=== PATIENT | male | born 1975 | race Caucasian/White ===

== ENCOUNTER 2017-09-25 02:39 | Emergency (ER) | payer OTHER ==
[~2017-09-25] VITALS: Ht 180.3 cm; Wt 104.3 kg
[2017-09-25] MEDS ORDERED: ALEVE220 MG PO (02:58)
[2017-09-25] MEDS ORDERED: OMEPRAZOLE20 MG PO (05:42)
[2017-09-25] MEDS ORDERED: NORCO 5-325 TA1 EACH PO (05:42)
[2017-09-25] MEDS ORDERED: ZOFRAN ODT4 MG PO (05:42)
== END 2017-09-25 05:59 | disposition home or self-care (01) ==
LOC: ED 02:39
DX: K80.20 Calculus of gallbladder without cholecystitis without obstruction (principal)
CPT/HCPCS: 76705; 80053; 81001; 83690; 85025; 87088; 96361; 96374; 96375; 99284; J1170; J1200; J2405; J2765; J7030

== ENCOUNTER 2017-10-03 21:54 | Inpatient (IN) | payer OTHER ==
[~2017-10-03] VITALS: Ht 180.3 cm; Wt 106.8 kg
[~2017-10-03 21:54] MED LIST: ALEVE220 MG PO; NORCO 5-325 TA1 EACH PO; OMEPRAZOLE20 MG PO; ZOFRAN ODT4 MG PO
[2017-10-03] MEDS ORDERED: ACTIGALL300 MG PO (22:14)
--- NOTE | 2017-10-04 00:41 | NUR ---
PT ADMITTED TO ROOM 116 FROM ER. COMPLAINS OF PAIN IN ABD THAT RADIATES TO HIS BACK. SAID HE HAS HAD THE GALLBLADDER PAIN FOR FEW WEEKS. HAS LOST 70 POUNDS IN 2017 BY CHOICE, BELIEVES STONES ARE RELATED TO HIS NEW DIET. AMBULATED TO BATHROOM TO VOID, GOT NAUSEATED AND VOMITED, GREEN 200 CC. ONCE BACK IN BED HE STATED HE FELT BETTER. PT WINDOWS SERVER SUPPORT TECHNICIAN, VIVI, GIVING HIM ZOFRAN AND DILAUDID FOR PAIN. IVF INFUSING AT 150CC
--- NOTE | 2017-10-04 01:19 | NUR ---
PATIENT RESTING COMFORTABLY IN BED, BREATHING IS EVEN AND UNLABORED. REPORTS 03/08 IN RUQ OF ABD. PRN DILAUDID GIVEN. WHILE AMBULATING TO BATHROOM, PATIENT VOMITED. PRN ZOFRAN GIVEN. PATIENT DENIES FURTHER NEEDS AT THIS TIME. CALL LIGHT WITHIN REACH.
--- NOTE | 2017-10-04 02:55 | NUR ---
PATIENT REPORTS 4/10 PAIN IN RUQ OF ABD AND LOWER BACK. PRN DILAUDID GIVEN PER EMAR. PATIENT DENIES FURTHER NEEDS AT THIS TIME. CONTINUOUS PULSE OX PUT ON DUE TO IV PAIN MEDICATION ADMINISTRATION. PATIENT CURRENT O2 SAT IS 92% ON RA. CALL LIGHT WITHIN REACH.
--- NOTE | 2017-10-04 03:06 | NUR ---
DUE TO 02 SATURATION OF 87%, PLACED PATIENT ON 1L O2 VIA NC. O2 SATURATION IS NOW 94%. PATIENT DENIES NEEDS AT THIS TIME. RESTING COMFORTABLY IN BED, BRETHING EVEN AND UNLABORED. CALL LIGHT WITHIN REACH.
--- NOTE | 2017-10-04 05:59 | NUR ---
PATIENT REPORTS 5/10 ABD PAIN AND EMESIS WHILE AMBULATING. PRN DILAUDID AND ZOFRAN GIVEN PER EMAR. PATIENT DENIES FURTHER NEEDS AT THIS TIME. CALL LIGHT WITHIN REACH.
--- NOTE | 2017-10-04 07:00 | NUR ---
REPORT GIVEN FROM VIVI RN. PATIENT HAD C/O PAIN AND NAUSEA. PATIENT VERY ANXIOUS ABOUT MEDICATIONS AND CARE.
--- NOTE | 2017-10-04 07:30 | NUR ---
CALLED DR. TAYLOR FOR NAUSEA AND PAIN MEDICATIONS. GAVE PATIENT 12.5MGOF PHENERGAN AND MORPHINE 4 MG. PATIENT RESTING IN BED. ANXIOUS ABOUT MEDICATIONS. ASKING QUESTIONS IN REGARDS TO SCHEDULES AND CARES. ASSESSMENT COMPLETE. UPDATED PT ON PLAN OF CARE.
--- NOTE | 2017-10-04 09:03 | NUR ---
PATIENT REPORTS TO BE DOING WELL. IN ROOM.
--- NOTE | 2017-10-04 10:55 | NUR ---
patient stating he is starting to feel the pain come back in r ribs. patient agreed to taking 2mg morphine. gave iv medications. in room. patient stating no nausea at this time. reports to be voiding well. no other needs at this time.
--- NOTE | 2017-10-04 11:15 | NUR ---
patient stating pain medication helping. doing okay at this time. abd remains active. tender to touch. scds in place. no nausea at this time.
--- NOTE | 2017-10-04 12:00 | NUR ---
rounded with dr. braun in room. plan to given several bolus. and prep for surgery later tonight. continue npo status. consent to chart. patient updated onplan of care.
--- NOTE | 2017-10-04 12:35 | NUR ---
BOLUS STARTED. MORPHINE 4 MG GIVEN. PATIENT UPDATED ON PREPING FOR SURGERY. IN ROOM.
--- NOTE | 2017-10-04 15:09 | NUR ---
PATIENT FINISHED SURGICAL WIPE DONE. ASSISTED BACK TO BED WITH CLEAN SHEETS. ANTIBIOTIC STARTED. PATIENT REPORTS STILL HAVING R RIB PAIN. MORPHINE 6 MG GIVEN. IN ROOM. PATIENT IS ALREADY FOR SURGERY.
--- NOTE | 2017-10-04 16:15 | NUR ---
patient given morphine and phenergan for c/o nausea starting and r back pain. in room. repositioned patient. oral care provided. patient asking when he going to surgery. updated him on waiting time. patien reports morphine helping with pain, but that it comes back. call light within reach. patient has cont pulse ox in place.
--- NOTE | 2017-10-04 17:08 | NUR ---
PATIENT TO SURGERY. RECENT VOID, CONTACTS OUT. PATIENT GOING WITH EYEGLASSES AND GLASS CASE. STRAIGHT TUBING INTACT AND FREE FLOWING.
[2017-10-04] MEDS ORDERED: ANDROGEL75 G1 TOP (18:11)
--- NOTE | 2017-10-04 19:20 | NUR ---
RECEIVED REPORT FROM RN. PATIENT CURRENTLY IN SURGERY. IN ROOM.
--- NOTE | 2017-10-04 19:59 | NUR ---
10/04/171958 Afshan Mattson 1949 - PT ARRIVED TO PACU. MAINTAINING OWN AIRWAY. PT RESPONDS TO STIMULI.
--- NOTE | 2017-10-04 21:00 | NUR ---
PT ARRIVED BACK FROM PACU, RECEIVED REPORT FROM KAILEY. PT ASKING QUESTIONS, AND REPEATING THEM. CONFUSED, O2 @ 2 LITERS HIS OXYGEN LEVELS DROP TO HIGH 80'S. PT EXTUBATED SELF, NEEDED ENCOURAGEMENT TO TAKE DEEP BREATHS, BUT FALLS ASLEEP OFF AND ON DURING CONVERSATION.
--- NOTE | 2017-10-04 21:30 | NUR ---
PATIENT RESTING COMFORTABLY IN BED, BREATHING IS EVEN AND UNLABORED. PATIENT DENIES NAUSEA AT THIS TIME. PATIENT REPORTS 4/10 PAIN IN ABD. PATIENT REMAINS DROWSY AFTER SURGERY AND FALLS ASLEEP QUICKLY WHEN NOT BEING VERBALLY STIMULATED. FLACC SCORE OF 0. PAIN MEDICATION NOT GIVEN AT THIS TIME DUE TO FLACC SCORE OF 0 AND PATIENT BEING DROWSY. REQUIRES 2L 02 VIA NC TO MAINTAIN O2 SATURATION GREATER THAN 90%. PATIENT DENIES FURTHER NEEDS AT THIS TIME. ASSESSMENT DONE. APPLIED GAUZE TO LAP SITE AT UMBILICUS DUE TO SMALL AMOUNT OF SANGENOUS DRAINAGE. O2 SATURATION IS 97% ON 2L O2, PULSE IS 81. CALL LIGHT WITHIN REACH.
--- NOTE | 2017-10-04 21:34 | NUR ---
PT WEARS A CPAP MASK AT HOME FOR SLEEP APNEA. LAST NIGHT HE REFUSED THE OFFER, BUT PT ENCOURAGED PT TO USE.
--- NOTE | 2017-10-05 01:20 | NUR ---
PATIENT RESTING COMFORTABLY IN BED. REPORTS 7/10 PAIN WHEN SITTING ON EDGE OF BED. O2 SATURATION IS 97% ON 2L O2 VIA NC, PULSE IS 67, 14 RESPIRATIONS/MIN. PRN MORPHINE GIVEN PER EMAR. PATIENT DENIES FURTHER NEEDS AT THIS TIME. CALL LIGHT WITHIN REACH.
--- NOTE | 2017-10-05 02:35 | NUR ---
PATIENT RESTING COMFORTABLY IN BED, BREATHING IS EVEN AND UNLABORED. O2 SATURATION IS 95% ON 2L O2 VIA NC, PULSE IS 61, RR IS 12RPM. FLACC SCORE OF 0. CALL LIGHT WITHIN REACH.
--- NOTE | 2017-10-05 03:00 | NUR ---
PATIENT RESTING COMFORTABLY IN BED, BREATHING IS EVEN AND UNLABORED. O2 SATURATION IS 94% ON 2L 02 VIA NC, PULSE IS 65. PATIENT AMBULATED TO BATHROOM WITH 2PA FOR SAFETY. PATIENT TOLERATED AMBULATION WELL WITHOUT NAUSEA. PATIENT REPORTS 4/10 PAIN AT SURGICAL SITES ONCE BACK IN BED. PATIENT STATES "IT FEELS LIKE THE MUSCLES ARE SORE." WILL ADMINISTER PRN PAIN MEDICATION. PATIENT DENIES FURTHER NEEDS AT THIS TIME. NOW RESTING COMFORTABLY IN BED AGAIN, O2 SATURATION IS 92% ON 2L O2, PULSE IS 67. CALL LIGHT WITHIN REACH, ASSESSMETN DONE.
--- NOTE | 2017-10-05 05:14 | NUR ---
PATIENT RESTING COMFORTABLY IN BED, BREATHING IS EVEN AND UNLABORED. O2 SATURATION IS 95% ON 2L O2 VIA NC. FLACC SCORE OF 0. CALL LIGHT WITHIN REACH.
--- NOTE | 2017-10-05 05:16 | NUR ---
PATIENT HAS BEEN RESTING ON AND OFF THROUGHOUT NIGHT. VSS, PAIN HAS BEEN WELL CONTROLED WITH PRN MORPHINE. PATIENT IS ALERT AND ORIENTED, REQUIRES 2L O2 VIA NC TO KEEP SATS GREATER THAT 90% AND HAS REFUSED TO WEAR CPAP. DRESSINGS FOR LAP SITES HAVE BEEN CLEAN AND INTACT. SMALL AMOUNT OF SANGENOUS DRAINAGE NOTED FROM LAP SITE AT UMBILICUS, REINFORCED WITH GAUZE. NO NEW DRAINAGE AT THIS TIME. TOERLATING AMBULATION WELL WITHOUT NAUSEA. NO ACUTE CHANGES FROM BEGINNING OF SHIFT ASSESSMENT.
--- NOTE | 2017-10-05 06:10 | NUR ---
PATIENT RESTING COMFORTABLY IN BED, BREATHING IS EVEN AND UNLABORED. O2 SAT IS 97% ON 2L O2 VIA NC, PULSE IS 71. PATIENT STATES "YOU JIPPED ME ON PAIN MEDS. YOU SAID YOU WERE GOING TO GIVE ME SOME." PATIENT STATES PAIN IS CURRENTLY 0/10. EDUCATED PATIENT ABOUT PAIN MANAGEMENT AND THE USE OF PAIN MEDICATION. DENIES FURTHER NEEDS AT THIS TIME. CALL LIGHT WITHIN REACH.
--- NOTE | 2017-10-05 06:40 | NUR ---
ASSISTED PT UP TO BATHROOM TO USE THE URINAL. BACK TO BED WITH ASSISTANCE, COMPLAINED OF PAIN BUT PAIN DECREASES ONCE BACK IN BED AND RESTING. DRANK WATER, STATED TASTED GOOD, ATE SOME JELLO. NO COMPAINTS OF NAUSEA AT THIS TIME, IF TOLERATES, WILL MED WITH PO PAIN MED. CALL LIGHT WITH IN REACH. PT PCP, DR KELLEY VISITING WITH PATIENT. CALL LIGHT WITH REACH. ROOM AIR, 92
--- NOTE | 2017-10-05 07:58 | OR ---
[facility] [address], [place] [address] Signed DATE OF OPERATION: 10/03/2017 SURGEON: Sonia Taylor MD PREOPERATIVE DIAGNOSIS: Acute calculous cholecystitis. POSTOPERATIVE DIAGNOSIS: Severe acute calculous cholecystitis. PROCEDURE: 1. Laparoscopic cholecystectomy with intraoperative cholangiogram, extremely prolonged, complicated, and difficult. 2. Surgeon-directed fluoroscopy. ANESTHESIA: General endotracheal, Sohail Van Vleck, MATERIALS ANALYST and local 20 mL of 0.25% Marcaine with Epinephrine. INDICATION: This 42-year-old white man lives in [place] and approximately 9 days ago, presented to the emergency room, was evaluated by Dr. Muniz with right upper abdominal and epigastric pain. The patient sustained a 70-pound weight loss over the past number of months intentionally. He was found on gallbladder ultrasound to have gallstones. He was recommended to proceed with elective cholecystectomy for biliary colic related to gallstones, but due to the patient's concerns about his health savings account, he wished to defer this if possible until October. Unfortunately, he has had relentless and progressive symptoms for the past 9 days. He presented to the emergency room late last night yesterday, evaluated by Dr. Calderon, and consulted by me for acute calculous cholecystitis. He has been fluid resuscitated and given intravenous antibiotics, parenteral pain medication, and so forth, and is to undergo cholecystectomy preferred by laparoscopic approach. The risks of bleeding, infection, bile duct injury, need for open procedure, and other unforeseen complications were reviewed in detail. He understands and wished to proceed. FINDINGS: The gallbladder was very severely inflamed. Intense omental adhesions were noted and chronic inflammatory changes and thickening of the gallbladder down to the cystic duct Electronically Signed By: SONIA TAYLOR MD 10/05/17 0758 PATIENT NAME: EDU RAE OPERATIVE REPORT DATE OF : 77 PHYSICIAN: SONIA TAYLOR MD REPORT #: [id number] REPORT IS CONFIDENTIAL AND NOT TO BE RELEASED WITHOUT AUTHORIZATION [facility] [address], [place] [address] Signed was noted. The operation was prolonged, complicated, and difficult, but was accomplished safely by laparoscopic approach. The cholangiogram is performed and was normal. The cystic duct inserted on the medial aspect of the common duct. There was no sign of filling defect or other abnormality. The liver had some fatty infiltration and some interesting yellow fat like discrete lesions over the liver suggestive of hepatic steatosis, but I am not entirely sure what those lesions represented and will be researching it further. There is certainly no sign of cirrhosis. By conclusion, the operation was performed safely, but was prolonged, complicated, and difficult as described. DESCRIPTION OF PROCEDURE: The patient was brought to the operating room and given a general endotracheal anesthetic. Preoperative antibiotic Ancef had been given. Sequential compression device stockings used and heparin subcutaneously administered. The abdomen was clipped and prepared with chlorhexidine solution and draped sterilely. An infraumbilical incision was made and using an open Jenny cannula technique. Pneumoperitoneum was achieved to a level of 14 mmHg of carbon dioxide gas. Intraabdominal inspection showed no sign of ascites or carcinomatosis. The liver had mild blunting of the liver edge and some multiple yellow subcapsular abnormalities suggestive of focal fatty infiltration. The gallbladder was intensely inflamed and thickened and very intense omental adhesions were noted engulfing it. Three additional trocars were placed in usual configuration in the subxiphoid, right midclavicular, and right anterior axillary line. The gallbladder was thick enough that it could not be easily grasped and ultimately was decompressed of dark bile with a laparoscopic needle decompressing trocar device. The gallbladder was grasped and elevated cephalad and using blunt and electrocautery dissection, some clips as necessary. The omental adhesions were taken away from the gallbladder, though many of them were contiguous with the peritoneum of the gallbladder and a plane was not universally developed. When freed enough, the gallbladder was elevated cephalad and using blunt and electrocautery dissection, the infundibulum was dissected free ultimately identifying the gallbladder itself. With a combination of techniques of blunt electrocautery, irrigation, and other methods, the infundibulum could be developed more fully and the cystic duct ultimately defined well. The laparoscopic instrument was passed behind the cystic duct demonstrating that it was not contiguous with surrounding structures. A clip was applied across gallbladder cystic duct junction and a transverse choledochotomy was made in the cystic duct. Retrograde milking showed turbid bile. Using the Dalton type cholangiocatheter, the intraoperative cholangiography was undertaken showing free flow of contrast of contrast in the biliary tree with emptying into the duodenum. There was no sign of filling defect or other problem. The cystic duct was relatively generous, but inserted on the medial aspect of the common duct. Catheter was removed and the cystic duct was triply clipped and divided. The gallbladder dissected Electronically Signed By: SONIA TAYLOR MD 10/05/17 0758 PATIENT NAME: EDU RAE OPERATIVE REPORT DATE OF : 77 PHYSICIAN: SONIA TAYLOR MD REPORT #: [id number] REPORT IS CONFIDENTIAL AND NOT TO BE RELEASED WITHOUT AUTHORIZATION [facility] [address], [place] [address] Signed free in a retrograde fashion. This too required blunt electrocautery dissection. Clips were applied to the cystic arterial branches once defined. Marked intensity of inflammation of the gallbladder to the hepatic fossa was noted. Ultimately, gallbladder was fully excised, placed in an Endobag, and extracted through the infraumbilical port site. It was opened on the back table and found to have multiple small yellow gallstones, marked inflammation of mucosa, but no sign of neoplasm. Irrigation was undertaken in the subhepatic space. Excess irrigation and fluid were suctioned free. Cautery was used to assure hemostasis and some Roger powdered hemostatic agent applied to the subhepatic space as well. Through a right-sided 5 mm trocar site, a 7 mm flat Pramod drain was placed in the subhepatic space and secured to the skin with nylon suture. Once cut, irrigation fluid was completely suctioned free. The trocars were removed under direct visualization showing no sign of bleeding. The infraumbilical fascial incision was reapproximated with interrupted 0 Vicryl suture. All wounds were infiltrated with 0.25% Marcaine with epinephrine. The skin was closed with interrupted 3-0 Vicryl and Steri-Strips were applied. The patient was ultimately extubated and transferred to recovery room in good condition having suffered no complication. Sponge, needle, and instrument counts were reported as correct x3. The operation was prolonged, complicated, and difficult lasting over four times longer than usual acute cholecystitis case. MD TERESA Roman/RYAN /[id number] cc: MD Valentin Cobian MD Electronically Signed By: SONIA TAYLOR MD 10/05/17 0758 PATIENT NAME: EDU RAE SKYLER OPERATIVE REPORT DATE OF : 77 PHYSICIAN: SONIA TAYLOR MD REPORT #: [id number] REPORT IS CONFIDENTIAL AND NOT TO BE RELEASED WITHOUT AUTHORIZATION [address] [address] Signed Shadi Perry MD Electronically Signed By: SONIA TAYLOR MD 10/05/17 0758 PATIENT NAME: EDU RAE SKYLER OPERATIVE REPORT DATE OF : 77 PHYSICIAN: SONIA TAYLOR MD REPORT #: [id number] REPORT IS CONFIDENTIAL AND NOT TO BE RELEASED WITHOUT AUTHORIZATION
--- NOTE | 2017-10-05 07:58 | HP ---
[facility] [address], [place] [address] Signed ADMISSION DATE: 10/04/2017 REASON FOR ADMISSION: This 42-year-old white man is admitted for acute calculous cholecystitis. On September 25, 2017, he presented to the emergency room where he was evaluated by Dr. Muniz for right upper abdominal pain. This confirmed gallstones without acute cholecystitis (gallbladder wall thickening or fluid). Due to the patient's health savings account situation, he wished to delay any intervention for his gallbladder until October. Unfortunately, since that time of discharge from the hospital, he has really not felt better indeed he is feeling worse and now "could no longer stand." On that basis, he presented once again to the emergency room was evaluated by Dr. Calderon and found to have elevated white count of 13,000, and a chem profile, which was essentially normal including liver enzymes, but tenderness and pain consistent with acute cholecystitis. He is admitted for further evaluation and care. PAST MEDICAL HISTORY: Generally unremarkable. He maintains excellent health overall. PAST SURGICAL HISTORY: He has never had surgery in the past. MEDICATIONS: He does take omeprazole presumably for reflux symptoms and has recently been on Zofran and hydrocodone. He has also been taking Actigall 300 mg p.o. b.i.d. and Naprosyn. I am not quite sure who prescribed the Actigall. SOCIAL HISTORY: He is . He has young children. He works for [employer]. His is the daughter of the strip mine supervisor of [employer] (Ana). REVIEW OF SYSTEMS: He denies any shortness of breath or chest pain. He is thirsty. Has no shortness of breath. Denies any precordial chest pain. His pain is central and upper and in the subcostal area. EXTREMITIES: No clubbing, cyanosis, or edema. LABORATORY STUDIES: As previously described including white count 13.0. His ultrasound interpretation was gallstones without acute cholecystitis on September 25. Images were reviewed, which show normal liver and gallbladder with several stones that shadow. ASSESSMENT: The patient now has acute calculous cholecystitis. Has attempted delaying his definitive Electronically Signed By: SONIA TAYLOR MD 10/05/17 0758 PATIENT NAME: EDU RAE HISTORY AND PHYSICAL DATE OF : 77 PHYSICIAN: SONIA TAYLOR MD REPORT #: [id number] REPORT IS CONFIDENTIAL AND NOT TO BE RELEASED WITHOUT AUTHORIZATION [facility] [address], [place] [address] Signed intervention of cholecystectomy have been unsuccessful and cholecystectomy is now well accepted by patient. We discussed the pathophysiology of biliary disease and a plan for cholecystectomy after adequate resuscitation. The risks of bleeding, infection, bile duct injury, need for open procedure, need for common duct exploration either laparoscopic or open were reviewed in detail. He understands. Given his clinical status of dehydration, additional fluid will be needed before consideration of operation. It may be able to be done later today or this evening, but it will depend on his clinical response to fluids and antibiotics and so forth. Right now, he is feeling much better with pain medication has been administered. MD TERESA Roman/MODL /[id number] cc: MD Valentin Cobian MD Russell Barr Harrison, MD Electronically Signed By: SONIA TAYLOR MD 10/05/17 0758 PATIENT NAME: EDU RAE HISTORY AND PHYSICAL DATE OF : 77 PHYSICIAN: SONIA TAYLOR MD REPORT #: [id number] REPORT IS CONFIDENTIAL AND NOT TO BE RELEASED WITHOUT AUTHORIZATION
--- NOTE | 2017-10-05 08:34 | NUR ---
PT UP TO THE BATHROOM. VOIDED 400ML. IV FLUIDS @85/HR. IV DRESSING CLEAN DRY AND INTACT. PT COMPFORTABLE. UP TO CHAIR FOR BREAKFAST. INSITIONS SITES CLEAN AND DRY. PAIN LEVEL IS 5/10.
--- NOTE | 2017-10-05 10:37 | NUR ---
PT IS RESTING IN BED SAFELY WITH CALL LIGHT IN REACH. PT IS GOING TO TRY AND GET SOME SLEEP. PT ASKED THAT HE HAVE CHICKEN INSTEAD OF BEEF BROTH FOR LUNCH, WILL NOITFY KITCHEN
--- NOTE | 2017-10-05 11:07 | NUR ---
PAIN IS UNDER CONTROL FOR NOW. ASKED IF I COULD BRING PAIN MEDICATION AT 1130. COMPFORTABLE IN BED. STATED SLIGHT DISCOMFORT WHILE MOVING AROUND. EDUCATED ON BRACING STOMACH WHEN COUGHING. AT BEDSIDE.
--- NOTE | 2017-10-05 11:18 | NUR ---
PT UP TO BATHROOM. GAVE 1 TAB OF PERCOCET FOR PAIN 02/06. PT WALKING WELL. TOLERATED WELL.
--- NOTE | 2017-10-05 14:22 | NUR ---
PT IS SITTING UP IN BED WITH CALL LIGHT IN REACH. PT ASKED FOR MORE BROTH AND JELLO
--- NOTE | 2017-10-05 14:34 | NUR ---
STARTED ANCEF. PT PAIN LEVEL AT 2 WHICH IS ACCEPTABLE FOR PT. COMFORTABLE IN BED WATCHING TV. STRAGHTENED UP ROOM. DRINKING CHICKEN BROTH.
[2017-10-05] MEDS ORDERED: OXYCODON-ACETA1 EAC2 PO (15:04)
--- NOTE | 2017-10-07 15:52 | DS ---
[facility] [address] [place], [place] [address] Signed ADMISSION DATE: 10/04/2017 DISCHARGE DATE: 10/05/2017 REASON FOR ADMISSION: This 42-year-old white man was admitted for acute calculous cholecystitis. He has been having significant right upper abdominal pain for the past 10 days. He has had back pain more or less for the past two months or so. Notably, the patient has undergone intentional weight loss efforts of 70 pounds over the past several months. He was admitted for further evaluation and care following an evaluation to the emergency room, which included findings of an elevated white count of 13,000 and a previous ultrasound, which confirmed gallstones. PERTINENT PHYSICAL EXAMINATION: GENERAL: A pleasant white man, who is in moderate discomfort. MOUTH: Trachea is midline. CHEST: Clear. HEART: Regular without murmur. ABDOMEN: Still somewhat obese, but tender in the right upper abdomen. There is no sign of ascites. EXTREMITIES: Showed no clubbing, cyanosis, or edema. HOSPITAL COURSE: The patient was admitted, given fluid resuscitation, intravenous antibiotics, parenteral pain medication and so on. Once fluid resuscitation was completed, he underwent laparoscopic cholecystectomy with intraoperative cholangiogram in the evening of October 04, 2017. Quite notable was the extent of his intense inflammation of the gallbladder with inflammatory changes, omental adhesions and so on. The operation was prolonged, complicated, and difficult, but accomplished safely. A drain was placed in the subhepatic space though there was no sign of bile leak or other problem at conclusion of the procedure. He did well overnight and by the following day, he was feeling quite well indeed including tolerating oral intake well and oral pain medication, ambulating well, urinating well and having no particular problem. He is discharged to home in an improved condition. The drain that was placed was removed as there was no evidence of bile leak or other problem. DISCHARGE MEDICATIONS: Will include: Percocet 7.5/325 1-2 p.o. every 4 hours p.r.n. pain, #20. He will continue Naprosyn as needed. He will continue with omeprazole 20 mg p.o. daily and testosterone AndroGel 75 g gel applied daily. We will discontinue Ursodiol (Actigall) that was Electronically Signed By: SONIA TAYLOR MD 10/07/17 1552 PATIENT NAME: EDU RAE DISCHARGE SUMMARY DATE OF : 77 PHYSICIAN: SONIA TAYLOR MD REPORT #: [id number] REPORT IS CONFIDENTIAL AND NOT TO BE RELEASED WITHOUT AUTHORIZATION [facility] [address] [place] [id number] Signed prescribed previously. Hold off on using Vicodin at this time and no real need for Zofran. FOLLOWUP PLANS: He will return to see me in approximately a month. He will walk on a daily basis. He can return to work in approximately 10 days to 2 weeks per his preference. DISCHARGE DIAGNOSES: 1. Severe acute calculus cholecystitis, chronic persistent recurrent. 2. Status post laparoscopic cholecystectomy with intraoperative cholangiogram, prolonged complicated difficult, October 04, 2017. 3. Obesity with weight loss, now with 70 pounds by intention. 4. Gastroesophageal reflux symptoms. 5. Low testosterone. Sonia Taylor MD JM/MODL /[id number] cc: MD Shadi Doyle MD Kelly Dean Pridgen, MD Electronically Signed By: SONIA TAYLOR MD 10/07/17 1552 PATIENT NAME: EDU RAE DISCHARGE SUMMARY DATE OF : 77 PHYSICIAN: SONIA TAYLOR MD REPORT #: [id number] REPORT IS CONFIDENTIAL AND NOT TO BE RELEASED WITHOUT AUTHORIZATION
== END 2017-10-05 17:00 | disposition home or self-care (01) | DRG 419 ==
LOC: ED 21:54 → MS 21:55
PROVIDERS: ADMIT Surgery
PROC: 0FT44ZZ Resection of Gallbladder, Percutaneous Endoscopic Approach (ICD-10-PCS; principal; 2017-10-03)
PROC: BF13YZZ Fluoroscopy of Gallbladder and Bile Ducts using Other Contrast (ICD-10-PCS; 2017-10-03)
DX: K80.00 Calculus of gallbladder with acute cholecystitis without obstruction (principal); E66.9 Obesity, unspecified; K21.9 Gastro-esophageal reflux disease without esophagitis; E86.0 Dehydration; Z68.32 Body mass index [BMI] 32.0-32.9, adult
CPT/HCPCS: 00790; 36415; 74300; 80053; 81001; 82247; 82465; 83615; 83690; 84100; 84478; 84550; 85025; 94660; 94762; 96361; 96374; 96375; 96376; 99285; G0378; J0690; J1170; J1644; J1885; J2250; J2270; J2405; J2550; J2704; J3010; J7030; J7042; J7120; Q9967

== ENCOUNTER 2025-01-27 04:47 | Emergency (ER) | payer OTHER ==
[~2025-01-27] VITALS: Ht 180.3 cm; Wt 106.5 kg
[~2025-01-27 04:47] MED LIST changes: +ACTIGALL300 MG PO; +ANDROGEL75 G1 TOP; +OXYCODON-ACETA1 EAC2 PO
[2025-01-27] MEDS ORDERED: LACTATED RINGER'S 1,000 ML IV ONE ×2 (05:15→06:30)
[2025-01-27] MEDS ORDERED: KETOROLAC TROMETHAMINE 30 MG/ML VIAL IV ONE (05:15)
[2025-01-27] MEDS ORDERED: ondansetron HCL 4 MG/2 ML VIAL IV PRN (05:15)
[2025-01-27] MEDS ORDERED: FAMOTIDINE 20 MG/ 2 ML VIAL IV ONE (05:15)
[2025-01-27 05:29] LABS: BASOPHILS 0.3 % (0-2); EOSINOPHILS 1.9 % (0-6); HEMATOCRIT 40.6 % (35.0-50.0); MCH 28.7 (27-36); MCHC 34.6 g/dl (30-36); MONOCYTES 5.7 % (0-12); NEUTROPHILS 67.1 % (39-80); PLATELET COUNT 182 K/uL (140-440); RBC 4.89 M/ul (4.3-5.7); RDW 13.3 (10.5-15.0)
[2025-01-27] MEDS ORDERED: ALTACE2.5 MG PO (05:51)
[2025-01-27] MEDS ORDERED: CRESTOR40 MG NG (05:51)
[2025-01-27 06:07] LABS: ALBUMIN 3.9 g/dL (3.4-5.0); ALBUMIN/GLOBULIN RATIO 1.11 (1.1-2.4); ANION GAP 9.3 (7-21); BILIRUBIN, TOTAL 0.5 mg/dL (0.2-1.0); BUN/CREATININE RATIO 21.73 (6.0-28.6); CALCIUM 9.7 mg/dL (8.5-10.1); CREATININE, SERUM 0.92 mg/dL (0.70-1.30); POTASSIUM 3.3 mmol/L (3.5-5.1); PROTEIN, TOTAL 7.4 g/dL (6.4-8.2)
[2025-01-27] MEDS ORDERED: TAMSULOSIN HCL 0.4 MG CAP PO ONE (06:15)
[2025-01-27] MEDS ORDERED: ONDANSETRON HCL4 MG PO (06:20)
[2025-01-27] MEDS ORDERED: FLOMAX0.4 MG PO (06:20)
[2025-01-27] MEDS ORDERED: HYDROCODON-ACE1 EA10 PO (06:20)
[2025-01-27] MEDS ORDERED: ONDANSETRON 4 MG HOME.PACK SL ONE (06:30)
[2025-01-27] MEDS ORDERED: HYDROCODONE BIT/ACETAMINOPHEN 5/325 MG 1 TAB HOME.PACK PO ONE (06:30)
[2025-01-27 07:07] LABS: BILIRUBIN, URINE NEGATIVE (negative); BLOOD/HGB, URINE LARGE (Negative); KETONE, URINE NEGATIVE (Negative); LEUK ESTERASE, URINE NEGATIVE (negative); NITRITE, URINE NEGATIVE (negative)
[2025-01-27 07:10] LABS: EPITHELIAL CELLS, URINE SQUAMOUS 1+ /lpf (0-1+)
[2025-01-27 07:11] LABS: CRYSTALS, URINE CALCIUM OXALATE 1+ (0-1+); RED BLOOD CELLS, URINE 21-40 /hpf (0-5)
[2025-01-27 07:12] LABS: BACTERIA, URINE NONE SEEN /hpf (negative); CASTS, URINE NONE SEEN \\lpf; COLLECTION TYPE, URINE CLEAN CATCH; REFLEX CULTURE, URINE No (No)
[2025-01-27 07:35] VITALS: BP 128/70
== END 2025-01-27 07:35 | disposition home or self-care (01) ==
LOC: ED 04:47
PROVIDERS: Internal Medicine
DX: N13.2 Hydronephrosis with renal and ureteral calculous obstruction (principal); Z87.442 Personal history of urinary calculi
CPT/HCPCS: 36415; 74176; 80053; 81001; 83690; 85025; 96361; 96374; 96375; 99284-25; A9270; J1885; J2405; J7121